=== PATIENT | male | born 1990 | race Caucasian/White ===

== ENCOUNTER 2018-01-22 11:07 | Emergency (ER) | payer OTHER ==
[~2018-01-22] VITALS: Ht 182.8 cm; Wt 115.7 kg
[2018-01-22] MEDS ORDERED: NAPROSYN500 MG PO (11:17)
== END 2018-01-22 13:06 | disposition home or self-care (01) ==
LOC: ED 11:07
DX: S60.512A Abrasion of left hand, initial encounter (principal); X58.XXXA Exposure to other specified factors, initial encounter; Y93.89 Activity, other specified; Y92.69 Other specified industrial and construction area as the place of occurrence of the external cause; Y99.9 Unspecified external cause status